=== PATIENT | male | born 1980 | race Two or more races ===

== ENCOUNTER 2024-09-09 18:12 | Emergency (ER) | payer MEDICAID, SELFPAY ==
[2024-09-09 18:38] VITALS: BP 120/82; PULSE 88; RESP 18; TEMP 36.9; O2SAT 97; BMI 37.7
--- NOTE | 2024-09-09 18:38 | PD.EDURI ---
Upper Respiratory Inf. RME/HPI General Chief Complaint: Flu Like Symptoms Stated Complaint: SNEEZING, H/A, GEN. BODY ACHES X 2D Time Seen by Provider: 09/09/24 18:23 Source: patient, RN notes reviewed and old records reviewed Arrival date/time: 09/09/24 18:12 Mode of arrival: ambulatory Limitations: no limitations RME / HPI RME / HPI Narrative: 43yom presents to ED for flu-like symptoms that initiated yesterday. No sick contacts. Patient c/o runny nose, sneezing, headache, body aches, sore throat. Also reports dental pain due to fractured molar. No fever, cough, shortness of breath, nausea/vomiting or neck pain reported. Ibuprofen taken this morning with some relief. Related Data Previous Rx's ?Medication ?Instructions ?Recorded ibuprofen 600 mg tablet 600 mg PO Q6H PRN pain #30 tabs 07/29/20 tamsulosin 0.4 mg capsule (Flomax) 0.4 mg PO QDAY #30 caps 07/29/20 hydrocodone 5 mg-acetaminophen 325 1 tab PO BID PRN pain #6 tabs 09/11/23 mg tablet amoxicillin 875 mg tablet 875 mg PO BID 7 days #14 tabs 09/09/24 cetirizine 10 mg tablet (Zyrtec) 10 mg PO QDAY #10 tabs 09/09/24 fluticasone propionate 50 2 spray intranasal QDAY #16 grams 09/09/24 mcg/actuation nasal spray,suspension (Flonase Allergy Relief) ibuprofen 600 mg tablet 600 mg PO Q6H PRN fever or pain 09/09/24 #20 tabs Allergies Allergy/AdvReac Type Severity Reaction Status Date / Time No Known Allergies Allergy Verified 09/09/24 18:14 Review of Systems Review of Systems Systems Reviewed: All systems reviewed, normal except as documented Constitutional Constitutional: Reports chills, Denies fever(s) and Reports headache(s) ENT Ears, Nose, Mouth, and Throat: Reports dental pain, Denies dizziness, Reports headache(s), Reports nasal congestion and Reports sore throat Cardiovascular Cardiovascular: Denies chest pain and Denies dyspnea Respiratory Respiratory: Denies cough and Denies dyspnea Gastrointestinal Gastrointestinal: Denies nausea and Denies vomiting Musculoskeletal Musculoskeletal: Reports myalgias Neurologic Neurologic: Denies dizziness and Reports headache(s) Past Medical History Past Medical History GASTROINTESTINAL: Positive Obesity Surgical History OTHER SURGICAL HX: LLE Social History SMOKING STATUS: Current every day smoker SUBSTANCE USE: does not use ALCOHOL: Never ED Exam General Limitations: Present no limitations General appearance: Present alert and in no apparent distress Head Head exam: Present atraumatic and normocephalic Eye Eye exam: Present normal appearance, PERRL and EOMI ENT ENT exam: Present normal oropharynx, mucous membranes moist, TM's normal bilaterally and other (Fractured left upper molar, no surrounding erythema or swelling. No facial swelling or trismus.) Neck Neck exam: Present normal inspection and full ROM; Absent meningismus Chest Chest inspection: Present normal inspection and symmetric chest wall rise Respiratory Respiratory exam: Present normal lung sounds bilaterally and other (No wheezing, rales or rhonchi); Absent respiratory distress Cardiovascular Cardiovascular exam: Present regular rate and normal rhythm Extremities Exam Extremities exam: Present normal inspection and full ROM Neurological Exam Neurological exam: Present alert and oriented X3 Psychiatric Psychiatric exam: Present normal affect and normal mood Skin Skin exam: Present warm, dry, intact and normal color Course Quality Measures none Orders Category Date Time Status Bedside COVID-19 Antigen Test NOW Care 09/09/24 18:41 Completed Bedside Influenza A&B Antigen Test NOW Care 09/09/24 18:41 Completed Acetaminophen Tab [Tylenol ES Tab] Med 09/09/24 18:41 Discontinued 1,000 mg PO X1 ONE Vital Signs Vital signs: Vital Signs Temperature 98.5 F 09/09/24 18:38 Pulse Rate 88 09/09/24 18:38 Respiratory Rate 18 09/09/24 18:38 Blood Pressure 120/82 09/09/24 18:38 Pulse Oximetry (%) 97 09/09/24 18:38 Oxygen Delivery Method Room Air 09/09/24 18:38 Upper Respiratory Infection MDM Narrative MDM Narrative:: 43yom presents to ED for flu-like symptoms that initiated yesterday. No sick contacts. Patient c/o runny nose, sneezing, headache, body aches, sore throat. Also reports dental pain due to fractured molar. No fever, cough, shortness of breath, nausea/vomiting or neck pain reported. Ibuprofen taken this morning with some relief. Patient is non-toxic appearing, afebrile, vitals are stable. No evidence of respiratory distress or hypoxia. Encouraged rest, fluids, symptomatic treatment, fever mgmt prn. Will rx antibiotic for dental pain/possible infection. Stable for dc, RTED precautions given. Patient data External records reviewed:: [facility] previous records (09/11/2023 ED visit for dental pain) Clinical information provided by:: patient Social determinants that could affect healthcare access:: other (specify) (Poor access to healthcare) Patient has the following chronic illnesses:: Obesity How is presenting disease/condition affected by chronic disease/condition?: exacerbated by Evaluation data The following diagnostics were reviewed and interpreted by me:: lab results Lab and/or radiology exams considered but not ordered:: CXR: Lungs clear, no respiratory distress or hypoxia Interpretation Summary: flu A positive covid negative Medications / Prescriptions Medications or Prescriptions considered but not ordered:: no antiviral recommended at this time Medication administrations:: Medication Administration History Discontinued Medications Acetaminophen (Acetaminophen 500 Mg Tablet) 1,000 mg PO X1 ONE Stop: 09/09/24 18:42 Last Admin: 09/09/24 18:56 Dose: 1,000 mg Documented By: Above medication administered in ED Consultations Consultation(s) initiated? (list below): No Diagnosis Upper Respiratory Differential Diagnosis: other (URI, COVID, flu, viral illness, dental pain, pharyngitis, tonsillitis) Most likely diagnosis given after review of the tests above:: flu A, pharyngitis, dental pain Admission Indicated Admission indicated?: not indicated Admission Request Was there a request for admission?: No Disposition Plan Disposition Plan: Discharge Discharge Attestation Discharge Attestation: The patient and all family members were given an opportunity to ask questions and understood the discharge instructions. Discharge instructions specifically effects, indications for sooner follow up or return to the emergency department, and the expected course of current diagnosis. Patient condition: Stable Discharge Plan Plan Patient Disposition: HOME (Self Care) Patient condition on transfer: Stable Prescriptions/Referrals Prescriptions/Med Rec: New ibuprofen 600 mg tablet 600 mg PO Q6H PRN (Reason: fever or pain) Qty: 20 0RF cetirizine [Zyrtec] 10 mg tablet 10 mg PO QDAY Qty: 10 0RF fluticasone propionate [Flonase Allergy Relief] 50 mcg/actuation spray,suspension 2 spray intranasal QDAY Qty: 16 0RF Rx Instructions: administer into each nostril amoxicillin 875 mg tablet 875 mg PO BID 7 Days Qty: 14 0RF No Action tamsulosin [Flomax] 0.4 mg capsule 0.4 mg PO QDAY Qty: 30 0RF ibuprofen 600 mg tablet 600 mg PO Q6H PRN (Reason: pain) Qty: 30 0RF hydrocodone-acetaminophen 5-325 mg tablet 1 tab PO BID MDD 10mg PRN (Reason: pain) Qty: 6 0RF Referrals: Atilio Reilly MD [Primary Care Provider] - In 1 week Problem List Clinical Impression: Influenza A, Viral syndrome, Pharyngitis, Pain, dental Patient/Caregiver Discharge Instructions Education Materials: ED Dental Pain, ED Influenza (Adult) Print Language: Malaysian Stand Alone Forms: Vianney Award Info., Patient Portal Info Letter PA/ENVIRONMENTAL SERVICES TECHNICIAN Supervising Physician PA/ENVIRONMENTAL SERVICES TECHNICIAN Supervising Physician: Karol
[2024-09-09] MEDS: ACETAMINOPHEN 500 MG TABLET 1000 MG PO (18:56)
== END 2024-09-09 21:09 | disposition home or self-care (01) ==
PROVIDERS: Emergency Provider Emergency Medicine; PCP Family Medicine
DX: J10.1 Influenza due to other identified influenza virus with other respiratory manifestations (principal); K08.89 Other specified disorders of teeth and supporting structures
CPT/HCPCS: 87400; 87811; 99283; A9270